=== PATIENT | female | born 2000 | race African-American/Black ===

== ENCOUNTER 2022-07-04 15:19 | Observation (INO) | payer BC ==
[2022-07-04] MEDS ORDERED: Acetaminophen 650 MG Suppository PR PRN (15:56)
[2022-07-04] MEDS ORDERED: Acetaminophen 325 MG TAB PO PRN (15:56)
[2022-07-04] MEDS ORDERED: Ondansetron ODT 4 MG TAB PO PRN (15:56)
[2022-07-04] MEDS ORDERED: Dextrose 5% in Water 1,000 ML IV PRN (16:27)
[2022-07-04] MEDS ORDERED: Dextrose 50% Abboject 50 ML SYRINGE SLOW IVP PRN (16:27)
[2022-07-04] MEDS ORDERED: HumaLOG 300 UNITS/3 ML VIAL SC PRN (16:27)
[2022-07-04 17:19] VITALS: BMI 57.1
[2022-07-05] MEDS ORDERED: HYDROcodone/Acetaminophen 5/325 mg Tablet PO SCH ×2 (02:30→10:30)
[2022-07-05 04:36] LABS: #Eosinphils 0.1 10x3/uL (0.0-0.5); #Monocytes 0.7 10x3/uL (0.0-1.1); #Neutrophils 4.1 10x3/uL (1.5-8.4); %Basophils 0.5 % (0.0-2.0); %Eosinophils 1.1 % (0.0-6.0); %Lymphocytes 43.2 % (18.0-47.0); %Monocytes 8.3 % (0.0-10.0); %Neutrophils 46.6 % (40.0-75.0); Hemoglobin 12.8 g/dL (12.0-15.5); Mean Corpuscular HGB CONC 32.4 g/dL (32.0-36.0); Mean Corpuscular Hemoglobin 27.4 pg (27.0-33.0); Mean Corpuscular Volume 84.4 fl (81.6-98.3); Mean Platelet Volume 9.2 fl (7.4-10.4); Platelet Count 275 10x3/uL (150-450); RBC Distribution Width 14.5 % (11.5-14.5); Red Blood Cell (RBC) Count 4.68 10x6/uL (3.90-5.03); White Blood Cell (WBC) Count 8.8 10x3/uL (3.5-10.5)
[2022-07-05 04:37] LABS: Anion Gap 13 mmol/L (10-20); BUN (Urea Nitrogen) 9 mg/dL (7.0-18.7); Calc. Creatinine Clearance 258 mL/min (70-130); Calcium 9.1 mg/dL (7.8-10.44); Carbon Dioxide 24 mmol/L (22-29); Chloride 106 mmol/L (98-107); Estimated GFR 107; Glucose 83 mg/dL (70-105); Potassium 3.9 mmol/L (3.5-5.1); Sodium 139 mmol/L (136-145)
[2022-07-05 08:44] VITALS: BP 140/89; TEMP 98
[2022-07-07 12:01] LABS: Cardiolipin IgA Ab 1.3 APL-U/mL (<14 Negative); Cardiolipin IgM Ab 1.7 MPL-U/mL (<10 Negative); EliA APS New Method **** NEW METHOD ****
[2022-07-08 12:17] LABS: Protein C Activity 146 % (78-152)
[2022-07-08 13:15] LABS: HEX PHOS LA Tube 1 43.9 SEC; HEX PHOS LA Tube 2 39.6 SEC; Hexagonal Phospholipid Neut 4.3 SEC (0-8.0); PTT 32.9 sec (22.9-36.1); Prothrombin Time 13.9 sec (12.0-14.7)
[2022-07-12] MEDS ORDERED: Apixaban 5 MG TAB PO SCH (21:00)
== END 2022-07-05 10:40 | disposition home or self-care (01) ==
LOC: CSHTELE 15:19 → INTOOBSV 15:19
PROVIDERS: ADMIT Family Medicine; ATTEND Nurse Practitioner Family
DX: I82.409 Acute embolism and thrombosis of unspecified deep veins of unspecified lower extremity (principal); I26.99 Other pulmonary embolism without acute cor pulmonale; E28.2 Polycystic ovarian syndrome; E11.9 Type 2 diabetes mellitus without complications; I44.0 Atrioventricular block, first degree; Z88.1 Allergy status to other antibiotic agents; Z86.16 Personal history of COVID-19; Z90.89 Acquired absence of other organs; Z79.84 Long term (current) use of oral hypoglycemic drugs
CPT/HCPCS: 36415; 36416; 80048; 83090; 83880; 85025; 85300; 85303; 85305; 85307; 85379; 85598; 85610; 85730; 86147; 93005; 93010; 93306; 94762; 96372; G0378; J1650

== ENCOUNTER 2023-01-14 10:30 | Outpatient (CLI) | payer BC | END 2023-01-14 10:31 | disposition home or self-care (01) | LOC: CSHULT 10:30 | PROVIDERS: ATTEND Nurse Practitioner Adult Health | DX: R60.0 Localized edema (principal); I26.99 Other pulmonary embolism without acute cor pulmonale | CPT/HCPCS: 93970 ==